=== PATIENT | male | born 1935 | race African-American/Black ===

== ENCOUNTER 2016-05-26 23:00 | Inpatient (IN) | payer OTHER ==
[~2016-05-26] VITALS: Ht 188 cm; Wt 58.9 kg
[2016-05-26 23:32] LABS: Basophils # (auto) 0 uL; Basophils % (auto) 0.3 % (0.0-2.0); Eosinophils # (auto) 0.2 uL; Eosinophils % (auto) 2.1 % (0.0-7.0); Hematocrit 44.1 % (41.0-53.0); Hemoglobin 14.3 g/dL (13.5-17.5); Lymphocytes # (auto) 1.9 uL; Lymphocytes % (auto) 21.2 % (10.0-50.0); Mean Corpuscular Hgb Conc. 32.3 g/dL (32.0-36.0); Mean Corpuscular Volume 92.7 fL (80.0-100.0); Mean Platelet Volume 7.8 fL (7.4-10.4); Monocytes # (auto) 0.6 uL; Monocytes % (auto) 6.5 % (0.0-12.0); Neutrophils # (auto) 6.4 uL; Neutrophils % (auto) 69.9 % (37.0-80.0); Platelet Count (auto) 252 10^3/uL (140-450); Red Cell Distribution Width 14.6 % (11.6-16.0); White Blood Cell 9.2 10^3/uL (4.4-10.8)
[2016-05-26 23:50] LABS: INR 1.11 (0.9-1.15); Prothrombin Time 11.4 sec (9.37-12.3)
[2016-05-26 23:58] LABS: Albumin 3.6 g/dL (3.4-5.0); BUN/Creatinine Ratio 15.6; Calcium 9.5 mg/dL (8.5-10.1)
[2016-05-27] LABS: Bilirubin, Total 0.7 mg/dL (0.2-1.0); Total Protein 7.3 g/dL (6.4-8.2)
[2016-05-27] MEDS ORDERED: ONDANSETRON HCL 4 MG/2 ML VIAL IV PRN (03:30)
[2016-05-27] MEDS ORDERED: MORPHINE SULF INJ 2 MG/ML SYRINGE 1ML IV PRN (03:30)
[2016-05-27] MEDS ORDERED: ACETAMINOPHEN 325 MG TAB PO PRN (03:30)
[2016-05-27] MEDS ORDERED: NITROGLYCERIN 0.4 MG SL TAB SL PRN (03:30)
[2016-05-27] MEDS ORDERED: HYDROcodone-ACET 5/325MG TAB PO PRN (03:30)
[2016-05-27 04:05] VITALS: BP 148/97
[2016-05-27 05:00] VITALS: BP 148/97
[2016-05-27 09:15] VITALS: BP 123/81
[2016-05-27] MEDS ORDERED: ASPirin 81 mg TAB PO SCH (10:00)
[2016-05-27] MEDS ORDERED: CLOPIDOGREL BISULFATE 75 MG TAB PO SCH (10:00)
[2016-05-27] MEDS ORDERED: LISINOPRIL 5 MG TAB PO SCH (10:00)
[2016-05-27] MEDS ORDERED: ENOXAPARIN SOD 30 MG/0.3 ML SYRINGE SC SCH (10:00)
[2016-05-27] MEDS: FAMOTIDINE 20 MG TAB PO SCH ×2 (10:43→21:51)
[2016-05-27] MEDS: ENOXAPARIN SOD 40 MG/0.4 ML SYRINGE SC SCH (10:43)
[2016-05-27 13:00] VITALS: BP 108/81
[2016-05-27 13:06] LABS: Phosphorus 2.5 mg/dL (2.5-4.90); Uric Acid 4.2 mg/dL (3.5-7.2)
[2016-05-27 13:11] LABS: B-Type Natriuretic Peptide 44.92 pg/mL (0-100)
[2016-05-27] MEDS: BOOST PLUS 8 ounce PO SCH ×2 (15:00→20:00)
[2016-05-27 17:04] LABS: Urine Bilirubin Negative (Negative); Urine Color Yellow (Yellow); Urine Glucose Normal (Normal); Urine Ketone Negative (Negative); Urine Nitrite Negative (Negative); Urine RBC 51 /hpf (0 - 3); Urine Squamous Epithelial Cell FEW /hpf (<5); Urine Urobilinogen Normal (Negative); Urine WBC Clumps PRESENT /hpf (None Seen)
[2016-05-27 17:05] LABS: Urine Blood 2+ /uL (Negative)
[2016-05-27 17:10] VITALS: BP 92/45
[2016-05-27 20:47] LABS: Temperature: 21.4 C (20.0-25.0)
[2016-05-27] MEDS: LEVOFLOXACIN 250MG 50 ML IV SCH (21:52)
[2016-05-27 22:00] VITALS: BP 91/68
[2016-05-28 05:00] VITALS: BP 103/58
[2016-05-28 06:37] LABS: Basophils # (auto) 0 uL; Basophils % (auto) 0.3 % (0.0-2.0); Eosinophils # (auto) 0.1 uL; Eosinophils % (auto) 2.2 % (0.0-7.0); Hematocrit 39.3 % (41.0-53.0); Hemoglobin 12.8 g/dL (13.5-17.5); Lymphocytes # (auto) 2.3 uL; Lymphocytes % (auto) 33.2 % (10.0-50.0); Mean Corpuscular Hemoglobin 30.1 pg (28.0-32.0); Mean Corpuscular Hgb Conc. 32.6 g/dL (32.0-36.0); Mean Corpuscular Volume 92.3 fL (80.0-100.0); Mean Platelet Volume 8.3 fL (7.4-10.4); Monocytes # (auto) 0.6 uL; Monocytes % (auto) 9.1 % (0.0-12.0); Neutrophils # (auto) 3.8 uL; Neutrophils % (auto) 55.2 % (37.0-80.0); Platelet Count (auto) 220 10^3/uL (140-450); Red Cell Distribution Width 14.7 % (11.6-16.0); White Blood Cell 6.8 10^3/uL (4.4-10.8)
[2016-05-28 06:43] LABS: INR 1.12 (0.9-1.15); Prothrombin Time 11.5 sec (9.37-12.3)
[2016-05-28 07:01] LABS: Potassium 4.1 mmol/L (3.5-5.1)
[2016-05-28 07:10] LABS: Albumin 3.1 g/dL (3.4-5.0); Calcium 8.9 mg/dL (8.5-10.1)
[2016-05-28 07:13] LABS: Bilirubin, Total 0.5 mg/dL (0.2-1.0); Total Protein 6.4 g/dL (6.4-8.2)
[2016-05-28 08:10] LABS: PSA Free 2.01 ng/mL; Prostate Specific Antigen 14.4 ng/mL (0.0-4.0)
[2016-05-28 09:14] VITALS: BP 119/53
[2016-05-28] MEDS ORDERED: PATIENTS OWN MEDICATION (xarelto 20 MG) PO SCH (10:00)
[2016-05-28] MEDS: BOOST PLUS 8 ounce PO SCH ×3 (10:00→20:00)
[2016-05-28] MEDS: FAMOTIDINE 20 MG TAB PO SCH ×2 (10:44→20:46)
[2016-05-28] MEDS: ENOXAPARIN SOD 40 MG/0.4 ML SYRINGE SC SCH (10:44)
[2016-05-28] MEDS: LEVOFLOXACIN 250MG 50 ML IV SCH (10:44)
[2016-05-28] MEDS: METOPROLOL TARTRATE 25 MG TAB PO SCH ×2 (12:41→20:47)
[2016-05-28 13:16] VITALS: BP 82/54
[2016-05-28] MEDS ORDERED: CARV3.1240 PO (16:15)
[2016-05-28] MEDS ORDERED: HYDR-531 PO (16:15)
[2016-05-28] MEDS ORDERED: TAMS0.4C36 PO (16:15)
[2016-05-28 17:00] VITALS: BP 99/48
[2016-05-28] MEDS ORDERED: SODIUM CHLORIDE 0.9% 500 ML IV ONE (18:30)
[2016-05-28] MEDS: RIVAROXABAN 20 MG TAB PO SCH (18:58)
[2016-05-28 22:17] VITALS: BP 122/49
[2016-05-29 05:09] VITALS: BP 84/62
[2016-05-29 06:26] LABS: Basophils # (auto) 0 uL; Basophils % (auto) 0.5 % (0.0-2.0); Eosinophils # (auto) 0.2 uL; Eosinophils % (auto) 2.4 % (0.0-7.0); Hematocrit 40.5 % (41.0-53.0); Hemoglobin 12.9 g/dL (13.5-17.5); Lymphocytes # (auto) 2.3 uL; Lymphocytes % (auto) 36.1 % (10.0-50.0); Mean Corpuscular Hemoglobin 29.9 pg (28.0-32.0); Mean Corpuscular Volume 93.3 fL (80.0-100.0); Mean Platelet Volume 8.2 fL (7.4-10.4); Monocytes # (auto) 0.6 uL; Neutrophils # (auto) 3.3 uL; Platelet Count (auto) 220 10^3/uL (140-450); Red Cell Distribution Width 14.5 % (11.6-16.0); White Blood Cell 6.3 10^3/uL (4.4-10.8)
[2016-05-29 06:39] LABS: INR 1.28 (0.9-1.15); Prothrombin Time 13.2 sec (9.37-12.3)
[2016-05-29 07:02] LABS: Albumin 3.1 g/dL (3.4-5.0); BUN/Creatinine Ratio 20.4; Bilirubin, Total 0.3 mg/dL (0.2-1.0); Calcium 9.3 mg/dL (8.5-10.1); Magnesium 2.2 mg/dL (1.6-2.6); Total Protein 6.4 g/dL (6.4-8.2)
[2016-05-29 09:00] VITALS: BP 95/64
[2016-05-29] MEDS: METOPROLOL TARTRATE 25 MG TAB PO SCH (10:00)
[2016-05-29] MEDS: LEVOFLOXACIN 250MG 50 ML IV SCH (10:22)
[2016-05-29] MEDS: FAMOTIDINE 20 MG TAB PO SCH ×2 (10:22→21:38)
[2016-05-29] MEDS: BOOST PLUS 8 ounce PO SCH ×3 (10:23→17:52)
[2016-05-29 13:14] VITALS: BP 91/61
[2016-05-29 17:10] VITALS: BP 88/59
[2016-05-29] MEDS: RIVAROXABAN 20 MG TAB PO SCH (17:51)
[2016-05-29] MEDS ORDERED: DIGOXIN 0.25 MG TAB PO ONE (18:30)
[2016-05-29 22:00] VITALS: BP 92/60
[2016-05-29 22:10] LABS: Vitamin D 25-Hydroxy 17 ng/mL (.); Vitamin D-2 25-Hydroxy <1.0 ng/mL (.)
[2016-05-30 05:00] VITALS: BP 96/60
[2016-05-30 06:16] LABS: Albumin 2.9 g/dL (3.4-5.0); BUN/Creatinine Ratio 22.2; Bilirubin, Total 0.2 mg/dL (0.2-1.0); Calcium 8.9 mg/dL (8.5-10.1); Potassium 4.3 mmol/L (3.5-5.1); Total Protein 5.9 g/dL (6.4-8.2)
[2016-05-30 09:13] VITALS: BP 92/69
[2016-05-30] MEDS ORDERED: DIGOXIN 0.25 MG TAB PO SCH (10:00)
[2016-05-30] MEDS: BOOST PLUS 8 ounce PO SCH ×2 (12:51→15:48)
[2016-05-30 13:12] VITALS: BP 108/67
[2016-05-30 13:14] VITALS: BP 108/67
[2016-05-30] MEDS: FAMOTIDINE 20 MG TAB PO SCH (14:04)
[2016-05-30] MEDS: LEVOFLOXACIN 250MG 50 ML IV SCH (14:04)
[2016-05-30 17:00] VITALS: BP 95/75
[2016-05-30] MEDS ORDERED: RIVAROXABAN 15 MG TAB PO SCH (18:00)
== END 2016-05-30 18:07 | disposition home or self-care (01) | DRG 682 ==
LOC: EDBD 23:00 → ER 23:00 → TELE-WESTW 23:01 → ER 05-27 03:57 → TELE-WESTW 05-27 03:57
PROVIDERS: ADMIT Nurse Practitioner; ATTEND Internal Medicine Pulmonary Disease
DX: N17.0 Acute kidney failure with tubular necrosis (principal); E43 Unspecified severe protein-calorie malnutrition; F02.81 Dementia in other diseases classified elsewhere, unspecified severity, with behavioral disturbance; N39.0 Urinary tract infection, site not specified; I48.0 Paroxysmal atrial fibrillation; J44.9 Chronic obstructive pulmonary disease, unspecified; R55 Syncope and collapse; I10 Essential (primary) hypertension; I25.10 Atherosclerotic heart disease of native coronary artery without angina pectoris; I25.2 Old myocardial infarction; Z85.46 Personal history of malignant neoplasm of prostate; Z95.0 Presence of cardiac pacemaker; F17.200 Nicotine dependence, unspecified, uncomplicated; G30.9 Alzheimer's disease, unspecified
CPT/HCPCS: 36415; 70450; 71010; 72220; 76775; 80053; 81001; 82306; 82570; 82607; 82746; 82962; 83735; 83880; 83970; 84100; 84154; 84156; 84300; 84439; 84443; 84484; 84550; 85025; 85049; 85610; 85730; 87040; 87086; 93005; 93306; 93886; 95819; 97001